=== PATIENT | male | born 1990 | race Hispanic/Latino ===

== ENCOUNTER 2020-06-01 09:28 | Inpatient (IN) | payer OTHER ==
[~2020-06-01] VITALS: Ht 180.3 cm; Wt 104.3 kg
--- NOTE | 2020-06-01 10:36 | Diagnostic Imaging Report ---
EXAM: CT Abdomen and Pelvis without contrast INDICATION: Right lower quadrant abdominal pain. COMPARISON: None. TECHNIQUE: Abdomen and pelvis were scanned utilizing a multidetector helical scanner from the lung base to the pubic symphysis without administration of IV contrast. Coronal and sagittal reformations were obtained. Routine protocol was performed. IV CONTRAST: None. ORAL CONTRAST: None. COMPLICATIONS: None RADIATION DOSE: Total DLP: 731.6 mGy*cm Estimated effective dose: (DLP x 0.015 x size factor) mSv CTDIvol has been reviewed. It is below the limits set by the Radiation Protocol Committee (RPC). FINDINGS: LINES and TUBES: None. LOWER THORAX: Unremarkable HEPATOBILIARY: No evidence of focal lesion. No biliary ductal dilation. GALLBLADDER: No radio-opaque stones or sludge. No wall thickening. SPLEEN: No splenomegaly. PANCREAS: No focal masses or ductal dilatation. ADRENALS: No adrenal nodules KIDNEYS/URETERS: No evidence of hydronephrosis, solid mass, or stone. GI TRACT: No evidence of wall thickening or distension. There is mild dilation of the appendix, measuring up to 7 mm with mild mural enhancement. There is no significant fat stranding directly adjacent to the appendix. There is stranding within the fat in the right lower quadrant, but not directly centered adjacent to the appendix. PELVIC ORGANS/BLADDER: Unremarkable. LYMPH NODES: No lymphadenopathy. VESSELS: Unremarkable. PERITONEUM / RETROPERITONEUM: No free air or fluid. BONES AND SOFT TISSUES: No acute osseous abnormality. Moderate right fat-containing inguinal hernia. CONCLUSION: The appendix is mildly dilated with mural enhancement, but demonstrates no wall thickening or direct surrounding inflammatory changes. There is however fat stranding in the right lower quadrant fat adjacent to the right inguinal hernia, which may be mildly inflamed. Recommend clinical correlation for reducibility. An additional consideration is early appendicitis in the appropriate clinical setting. Recommend clinical and/or short interval contrast enhanced CT follow-up. The above findings were discussed with Dr. Santy Salamanca on 06/01/2020 at 1030AM. Signed by: Dr. Lowell Melara MD on 06/01/2020 10:32 AM
--- NOTE | 2020-06-01 10:50 | Emergency Department Note ---
History of Present Illnes History of Present Illness Chief Complaint: Abdominal Complaints History of Present Illness This is a 29 year old male . Historian: Patient Arrival Mode: Car Onset (how long ago): day(s) (1) Location: RLQ PAIN Quality: DULL Severity: moderate Onset quality: gradual Duration (how long): day(s) (1) Timing of current episode: intermittent Progression: waxing and waning Context: Denies recent illness, Denies recent surgery, Denies recent immobilization, Denies recent travel, Denies trauma/injury, Denies new medications, Denies hx of DVT/PE, Denies non-compliance w/ medications, Denies other Relieving factors: none Exacerbating factors: none Associated symptoms: Reports denies other symptoms Treatments prior to arrival: none Past Medical/Family History Physician Review I have reviewed the patient's past medical and family history. Any updates have been documented here. Past Medical History Recent Fever: No Clinical Suspicion of Infectio: No New/Unexplained Change in Ment: No Past Medical History: None Other Surgery: foot surgeries Social History Smoking Cessation: Never Smoker Counseling Performed: No Alcohol Use: None Any Illegal Drug Use: No Physically hurt or threatened: No Other Any Pre-Existing Lines (PICC,: No Review of Systems Review of Systems Constitutional: Reports no symptoms EENTM: Reports no symptoms Cardiovascular: Reports no symptoms Respiratory: Reports no symptoms Gastrointestinal: Reports as per HPI Genitourinary: Reports no symptoms Musculoskeletal: Reports no symptoms Integumentary: Reports no symptoms Neurological: Reports no symptoms Psychological: Reports no symptoms Endocrine: Reports no symptoms Hematological/Lymphatic: Reports no symptoms Physical Exam Related Data Allergies: Coded Allergies: latex (Verified Allergy, Intermediate, rash/hives, 06/01/20) Triage Vital Signs Vital Signs Date Time Temp Pulse Resp B/P (MAP) Pulse Ox O2 Delivery O2 Flow Rate FiO2 06/01/20 09:40 98.4 64 18 112/69 100 Room Air Vital signs reviewed: Yes Physical Exam CONSTITUTIONAL Constitutional: Present well-developed, Present well-nourished HENT HENT: Present normocephalic, Present atraumatic, Present oropharynx clear/moist, Present nose normal HENT L/R: Present left ext ear normal, Present right ext ear normal EYES Eyes: Reports PERRL, Reports conjunctivae normal NECK Neck: Present ROM normal PULMONARY Pulmonary: Present effort normal, Present breath sounds normal CARDIOVASCULAR Cardiovascular: Present regular rhythm, Present heart sounds normal, Present capillary refill normal, Present normal rate GASTROINTESTINAL Abdominal: Present soft, Present bowel sounds normal, Present other (RLQ) GENITOURINARY Genitourinary: Present exam deferred SKIN Skin: Present warm, Present dry MUSCULOSKELETAL Musculoskeletal: Present ROM normal NEUROLOGICAL Neurological: Present alert, Present oriented x 3, Present no gross motor or sensory deficits PSYCHOLOGICAL Psychological: Present mood/affect normal, Present judgement normal Results Laboratory Lab results reviewed: Yes Imaging Imaging results reviewed: Yes Assessment & Plan Medical Decision Making MDM APPENDICITIS KIDNEY STONE Reassessment Reassessment time: 10:46 Reassessment SAME Assessment & Plan Final Impression: (1) Abdominal pain, right lower quadrant Depart Disposition: ADMITTED Last Vital Signs Date Time Temp Pulse Resp B/P (MAP) Pulse Ox O2 Delivery O2 Flow Rate FiO2 06/01/20 09:40 98.4 64 18 112/69 100 Room Air ANDREA SINGER MD Jun 01, 2020 10:50
[2020-06-01] MEDS ORDERED: PIPER-TAZ 3.375 GM 50 ML IV ONE (11:00)
[2020-06-01] MEDS: SODIUM CHLORIDE 0.9% 1000ML 1,000 ML IV SCH (11:00)
[2020-06-01] MEDS ORDERED: ONDANSETRON HCL INJ 2MG/ML 2ML 2 MG/ML VIAL IV PRN (11:00)
[2020-06-01] MEDS ORDERED: PIPER-TAZ 3.375 GM 50 ML ONE (11:02)
--- OUTSIDE RECORDS SUMMARY | 2020-06-01 11:04 | XMS REPORT | Continuity of Care Document ---
Author Author [facility] t Organization [facility] Address [address] [place] [address] Dr. Bauman [address] [place] [phone] Phone Unavailable Care Team Providers Care Business Test Analyst Name Role Phone SANTY SALAMANCA Attphys Unavailable Problems This patient has no known problems. Allergies, Adverse Reactions, Alerts This patient has no known allergies or adverse reactions. Medications This patient has no known medications. Procedures This patient has no known procedures. Results Test Description Test Time Test Comments Results Result Comments Source CT ABD/PEL WO CONTRAST-HOPD 2020-06-01 10:14:00 [place] [address] Patient Name: WILLI HUNTLEY MR #: [id number] : 1990 Age/Sex: 29/M Req #: [id number] Adm Physician: Ordered by: SANTY SALAMANCA MD Report #: [id number] [facility] Room/Bed: Procedure: [id number] HOPD/CT ABD/PEL WO CONTRAST-HOPD Exam Date: 06/01/20 Exam Time: 1009 REPORT STATUS: Signed EXAM: CT Abdomen and Pelvis without contrast INDICATION: Right lower quadrant abdominal pain. COMPARISON: None. TECHNIQUE: Abdomen and pelvis were scanned utilizing a multidetector helical scanner from the lung base to the pubic symphysis without administration of IV contrast. Coronal and sagittal reformations were obtained. Routine protocol was performed. IV CONTRAST: None. ORAL CONTRAST: None. COMPLICATIONS: None RADIATION DOSE: Total DLP: 731.6 mGy*cm Estimated effective dose: (DLP x 0.015 x size factor) mSv CTDIvol has been reviewed. It is below the limits set by the Radiation Protocol Committee (RPC). FINDINGS: LINES and TUBES: None. LOWER THORAX: Unremarkable HEPATOBILIARY: No evidence of focal lesion. No biliary ductal dilation. GALLBLADDER: No radio-opaque stones or sludge. No wall thickening. SPLEEN: No splenomegaly. PANCREAS: No focal masses or ductal dilatation. ADRENALS: No adrenal nodules KIDNEYS/URETERS: No evidence of hydronephrosis, solid mass, or stone. GI TRACT: No evidence of wall thickening or distension. There is mild dilation of the appendix, measuring up to 7 mm with mild mural enhancement. There is no significant fat stranding directly adjacent to the appendix. There is stranding within the fat in the right lower quadrant, but not directly centered adjacent to the appendix. PELVIC ORGANS/BLADDER: Unremarkable. LYMPH NODES: No lymphadenopathy. VESSELS: Unremarkable. PERITONEUM / RETROPERITONEUM: No free air or fluid. BONES AND SOFT TISSUES: No acute osseous abnormality. Moderate right fat-containing inguinal hernia. CONCLUSION: The appendix is mildly dilated with mural enhancement, but demonstrates no wall thickening or direct surrounding inflammatory changes. There is however fat stranding in the right lower quadrant fat adjacent to the right inguinal hernia, which may be mildly inflamed. Recommend clinical correlation for reducibility. An additional consideration is early appendicitis in the appropriate clinical setting. Recommend clinical and/or short interval contrast enhanced CT follow-up. The above findings were discussed with Dr. Santy Salamanca on 06/01/2020 at 1030AM. Signed by: Dr. Ozzie Haddad MD on 06/01/2020 10:32 AM Dictated By: OZZIE HADDAD MD 1032 Transcribed By: MANUEL on 06/01/20 1032 COPY TO: SANTY SALAMANCA MD
--- NOTE | 2020-06-01 11:22 | NUR ---
Called [facility] to transport pt to room 214.
--- NOTE | 2020-06-01 11:30 | NUR ---
Report called to KONG Garcia
--- NOTE | 2020-06-01 12:38 | NUR ---
PT ARRIVED FROM [facility] VIA EMS. PT IS AAOX4. EDUCATED PT ABOUT FALL PRECAUTIONS. PT VERBALIZED UNDERSTANDING. BED IS LOW AND LOCKED. SIDE RAILS X2. CALL LIGHT WITH IN EASY REACH. ALL SAFETY MEASURES IN PLACE. PT DENIES NEEDS AT THIS TIME.
[2020-06-01 13:00] VITALS: BP 119/59
--- NOTE | 2020-06-01 13:30 | NUR ---
DR. SULLIVAN AT BEDSIDE.
--- NOTE | 2020-06-01 14:00 | NUR ---
PAGED DR. QUIROGA REGARDING NEW CONSULT.
[2020-06-01 14:05] VITALS: BP 119/59
[2020-06-01 14:49] VITALS: BP 119/59
[2020-06-01] MEDS: PIPER-TAZ 3.375 GM 50 ML IV SCH ×2 (16:55→23:20)
[2020-06-01 16:56] VITALS: BP 116/68
--- NOTE | 2020-06-01 19:00 | NUR ---
RECEIVED PATIENT IN BEDSIDE SHIFT REPORT. PATIENT AMBULATING AROUND ROOM AT THIS TIME, STEADY GAIT NOTED. NO PAIN REPORTED. NO S&S OF DISTRESS NOTED. BED LOCKED IN LOWEST POSITION, SIDE RAILS UPX2, CALL LIGHT IN REACH.
--- NOTE | 2020-06-01 19:05 | NUR ---
BEDSIDE SHIFT REPORT RECEIVED FROM THE SHIPPING INSPECTOR RN. PT DENIED FURTHER NEEDS.
--- NOTE | 2020-06-01 19:35 | Consultation ---
DATE OF CONSULTATION: 06/01/2020 HISTORY OF PRESENT ILLNESS: The patient is a 29-year-old male, who presents with complaints of right lower quadrant abdominal pain. The patient has a known right inguinal hernia for some time. He says the pain is more in the area where his hernia is. He says the hernia swelled up more today size of a baseball. He went to the emergency room where he had CT of the abdomen and pelvis, found to have what appeared to be a mildly inflamed appendix with some inflammatory changes in the area of the hernia. He has not had any nausea or vomiting. He has not had any fever. He says the abdominal pain has gone right now. PAST MEDICAL HISTORY: Unremarkable. He has no chronic medical problems. He has had previous foot surgery. ALLERGIES: HE HAS ALLERGY TO LATEX. MEDICATIONS: There are no home medications. FAMILY HISTORY: Noncontributory. SOCIAL HISTORY: The patient does not smoke cigarettes or drink alcohol. REVIEW OF SYSTEMS: As stated above, otherwise was negative. PHYSICAL EXAMINATION: GENERAL: The patient is awake and alert, in no distress. VITAL SIGNS: Normal. He is afebrile. HEENT: Sclerae not icteric. NECK: No masses. LUNGS: Equal breath sounds are clear bilaterally. CARDIAC: Regular rate and rhythm with no murmur. ABDOMEN: Soft. There was no tenderness. No mass on abdominal exam. On examination of the inguinal area, there is a reducible right inguinal hernia which is very tender. EXTREMITIES: Have no edema. Pulses are palpable. NEUROLOGIC: Intact. LABORATORY DATA: White blood cell count is reported as normal. IMAGING: CT of the abdomen revealed mildly inflamed appearing appendix with inflammation more around the area of the right inguinal hernia, which was also seen on CT. ASSESSMENT: A 29-year-old male with findings of abdominal pain, most likely due to his hernia which may have been incarcerated but now is reduced, but there are also abnormalities of the appendix on CT and he was very tender in his hernia when I examined him. He possibly could have appendicitis within the hernia sac, although this was not seen on CT. Plan is to get evaluated further with laparoscopy, possible appendectomy with probable repair of the hernia, possibly with mesh. This surgery was explained to the patient including risks, benefits, and alternatives. He understands. He has had the opportunity to ask questions. Thank you for asking me to see Mr. Valdez. Les W MD DEBORAH Villavicencio/LUCITA /[id number]
[2020-06-01 20:00] VITALS: BP 116/52
[2020-06-01 20:15] VITALS: BP 116/52
--- NOTE | 2020-06-01 21:30 | NUR ---
PATIENT SHOWERED WITH CHG SOAP AT THIS TIME.
--- NOTE | 2020-06-01 22:55 | History and Physical ---
CHIEF COMPLAINT: Right lower quadrant abdominal pain. HISTORY OF PRESENT ILLNESS: This is a 29-year-old healthy charleen who was fine this morning, went to work, had severe right lower quadrant abdominal pain. Denies any nausea, vomiting. Denies any diarrhea. Denies any fever. Of note, the patient also has chronic right testicular enlargement, sometimes painful; however, when he wakes up in the morning, it is usually much better. The patient denies any chest pain. No shortness of breath. PAST MEDICAL AND SURGICAL HISTORY: Only orthopedic surgeries. MEDICATIONS: None. ALLERGIES: LATEX. SOCIAL HISTORY: No smoking. FAMILY HISTORY: Cancer. REVIEW OF SYSTEMS: A 10-point review of systems was obtained and nothing else is significant other than what is stated in HPI. PHYSICAL EXAMINATION: VITAL SIGNS: Temperature 98.6, pulse 60, respiratory rate 20, blood pressure 116/52. GENERAL: No acute distress. SKIN: No rash. HEENT: Anicteric. Oropharynx is clear. LUNGS: Clear. HEART: Regular rate and rhythm. Normal S1, S2. ABDOMEN: Soft, nondistended. Right lower quadrant tenderness. NEUROLOGIC: Alert and oriented x3. Cranial nerves 2 through 12 are grossly intact. PSYCHIATRIC: No hallucination. MUSCULOSKELETAL: Painless range of motion. LABORATORY DATA: CT shows right inguinal hernia with possible early appendicitis. ASSESSMENT AND PLAN: 1. Right lower quadrant abdominal pain. I have discussed with Dr. Villavicencio, Surgery, likely due to inguinal hernia, which may have been incarcerated, but now is reduced. The patient will be operated tomorrow. The plan is hernia repair, possibly appendectomy after evaluation with laparoscopy. At this time, we will continue Zosyn. 2. Gastrointestinal and deep vein thrombosis prophylaxis. No chemical DVT prophylaxis due to planned surgery. MD DAKSHA Cline/LUCITA /[id number]
[2020-06-02] VITALS (7 sets, daily range): BP systolic 104–122; BP diastolic 52–70
[2020-06-02] MEDS: SODIUM CHLORIDE 0.9% 1000ML 1,000 ML IV SCH (01:26)
[2020-06-02] MEDS: PIPER-TAZ 3.375 GM 50 ML IV SCH (05:19)
[2020-06-02] MEDS ORDERED: BACITRACIN 50,000 UNIT VIAL ONE (09:15)
[2020-06-02] MEDS ORDERED: BUPIVACAINE HCL 0.5% INJ 30 ML VIAL INJ ONE (09:15)
[2020-06-02] MEDS ORDERED: MIDAZOLAM HCL 2 MG/2 ML VIAL ONE (09:32)
[2020-06-02] MEDS ORDERED: SODIUM CHLORIDE 0.9% 1000ML 1,000 ML IV SCH (10:45)
[2020-06-02] MEDS ORDERED: MORPHINE SULFATE INJ 4 MG/ML INJ 1ML IV PRN (10:45)
[2020-06-02] MEDS: ONDANSETRON HCL INJ 2MG/ML 2ML 2 MG/ML VIAL IV PRN ×2 (11:00→16:35)
[2020-06-02] MEDS ORDERED: PROMETHAZINE HCL (IM) 25 MG/ML VIAL IM ONE (11:05)
--- NOTE | 2020-06-02 11:33 | Operative Report ---
DATE OF PROCEDURE: 06/02/2020 SURGEON: Les Villavicencio MD PREOPERATIVE DIAGNOSES: 1. Abdominal pain. 2. Right inguinal hernia. 3. Possible appendicitis. POSTOPERATIVE DIAGNOSES: 1. Abdominal pain. 2. Right inguinal hernia. 3. Possible appendicitis with appendicitis ruled out. PROCEDURES: Diagnostic laparoscopy, open repair of right inguinal hernia with mesh. ULTIMATE HOOPS SCOREBOARD OPERATOR: None. ANESTHESIA: General endotracheal. INDICATIONS AND FINDINGS: The patient is a 29-year-old male presenting with complaints of right lower quadrant abdominal pain. Evaluation revealed right inguinal hernia with possibly inflamed appendix. At Surgery, the patient was found to have a laparoscopy with normal-appearing appendix. There was some edema and fluid around the area of the right inguinal hernia, where his omentum go into the right inguinal hernia, which was not incarcerated. There was an indirect right inguinal hernia that was found. TECHNIQUE: After adequate general endotracheal anesthesia, the patient's supine position, the abdomen was and groin area prepped and draped in a sterile fashion with Betadine solution. Skin in the umbilicus was infiltrated with 0.5% Marcaine, incision was made in the umbilicus, abdominal wall was elevated and Veress needle was introduced, pneumoperitoneum was then created. A 5 mm trocar and cannula was then passed through this wound. Laparoscopic camera was introduced. Initial laparoscopy revealed large right inguinal hernia with omentum going into up and the omentum was not incarcerated, but did appear somewhat edematous with some serous fluid in the area. A 5 mm trocar and cannulas were placed in the right upper quadrant. The omentum was retracted away from the lower abdomen and reduced out of the hernia. The cecum was identified that was not inflamed. The appendix was seen. There was no inflammatory changes, was not dilated. The instruments and cannulas were then removed. Pneumoperitoneum was evacuated. Incision was then made in the right inguinal area, carried out through subcutaneous tissue and Selma's fascia into the external oblique fascia was seen. This was opened in direction of its fibers through the external ring. The ilioinguinal nerve was identified and preserved. The spermatic cord was dissected free from the floor of the inguinal canal. The cremaster fibers were opened. There was an indirect hernia sac which was contained some fluid. This was dissected free from the spermatic cord. There was no evidence of a direct hernia. The hernia sac extended down into the scrotum and there was considerable scarring around the hernia sac. The hernia sac and its neck were freed from the spermatic cord up to the internal ring. It was then divided at its midportion, the distal sac left in place. The more proximal sac was then doubly suture ligated with 2-0 Vicryl and reduced through the internal ring. A large Prolene mesh hernia system which had been soaked in antibiotic solution was placed through the internal ring with the underlay patch opened up in the preperitoneal space, onlay patch was laid over the floor of the inguinal canal, the keyhole opening created to allow exit spermatic cord. The onlay patch was sutured to the shelving edge of inguinal ligament laterally and conjoint tendon medially. This was done interrupted sutures of 0 Prolene. Care was taken not to entrap the general femoral or iliohypogastric nerves. Once the mesh was in place, the spermatic cord and ilioinguinal nerve were returned to their normal positions. The wound was inspected for hemostasis, which was seen to be adequate. The wound was then infiltrated with 0.5% Marcaine. The external oblique fascia was closed with running suture of 2-0 Vicryl. Care was taken not to entrap the spermatic cord or ilioinguinal nerve. Selma's fascia was closed with a running suture of 3-0 Vicryl. Skin to all wounds closed with running subcuticular sutures of 4-0 Vicryl. Dermabond and sterile dressing were applied to each wound. The patient tolerated the procedure well. Estimated blood loss was 5 mL. There were no complications. All counts were correct and the patient was taken to the recovery room in satisfactory condition. MD DEBORAH Chawla/MODL /[id number] cc: Raudel Jackson MD
--- NOTE | 2020-06-02 19:00 | NUR ---
RECEIVED PATIENT IN BEDSIDE SHIFT REPORT. PATIENT RESTING IN BED AT THIS TIME. MILD PAIN REPORTED. TROCHAR SITES TO ABD C/D/I. L AC 20G ASYMPTOMATIC, RUNNING NS @ 100ML/HR. PATIENT REPORTS NO NAUSEA OR VOMITING. NO S&S OF DISTRESS NOTED. BED LOCKED IN LOWEST POSITION, SIDE RAILS UPX2, CALL LIGHT IN REACH.
[2020-06-02] MEDS: HYDROCODONE/APAP 5MG-325MG TAB PO PRN (20:14)
--- NOTE | 2020-06-02 20:45 | Progress Note ---
DATE: 06/02/2020 SUBJECTIVE: The patient is doing well. Some right groin pain with movement. OBJECTIVE: VITAL SIGNS: Temperature 98.4, pulse 64, respiratory rate 18, blood pressure 120/54. GENERAL: No acute distress. SKIN: No rash. LUNGS: Clear. HEART: Regular rate and rhythm. Normal S1, S2. GI: Abdomen is soft, nondistended. NEUROLOGIC: Alert and oriented x3. PSYCHIATRIC: No hallucination. LABORATORY DATA: No new labs. ASSESSMENT/PLAN: 1. Right inguinal hernia status post repair. Otherwise, no evidence of all appendicitis. Plan per Dr. Villavicencio. We will discontinue antibiotics. We will continue IV fluid. 2. Gastrointestinal and deep venous thrombosis prophylaxes not indicated. MD DAKSHA Cline/LUCITA /[id number]
[2020-06-02] MEDS ORDERED: DEXAMETHASONE SOD PHOS INJ 4 MG/ML VIAL ONE (21:45)
[2020-06-02] MEDS ORDERED: KETOROLAC TROMETHAMINE 30 MG/ML VIAL ONE (21:45)
[2020-06-02] MEDS ORDERED: LIDOCAINE HCL 2% LOCAL INJ 5 ML SDV VIAL INJ ONE (21:45)
[2020-06-02] MEDS ORDERED: ONDANSETRON HCL INJ 2MG/ML 2ML 2 MG/ML VIAL ONE (21:45)
[2020-06-02] MEDS ORDERED: ROCURONIUM BROMIDE 10 MG/ML 5ML VIAL IV ONE (21:45)
[2020-06-02] MEDS ORDERED: PROPOFOL IV EMULSION 10 MG/ML 20 ML VIAL ONE (21:45)
[2020-06-02] MEDS ORDERED: SEVOFLURANE INHAL SOLN 250 ML PEN BTL ONE (21:45)
[2020-06-02] MEDS ORDERED: LIDOCAINE HCL 2% JELLY 5 ML TUBE ONE (21:45)
[2020-06-03] VITALS: BP 115/70
[2020-06-03 04:00] VITALS: BP 112/57
[2020-06-03 07:55] VITALS: BP 103/51
[2020-06-03 09:55] VITALS: BP 103/51
--- NOTE | 2020-06-03 10:18 | NUR ---
Yuly to discharge patient per Dr. Jackson. Raymundo
[2020-06-03] MEDS: HYDROCODONE/APAP 5MG-325MG TAB PO PRN (10:55)
--- NOTE | 2020-06-03 12:00 | NUR ---
Discharge education provided emphasizing the need to follow-up Dr. Villavicencio in 1 week. Prescription given. Patient is advised to watch s/s of infection in post-surgical area. Verbalized understanding. Discharge packet given. PIV to left AC removed with catheter tip intact, no bleeding noted.
--- NOTE | 2020-06-03 12:32 | NUR ---
Transported patient via wheelchair to private vehicle with all belongings taken.
--- NOTE | 2020-06-03 23:01 | Discharge Summary ---
FINAL DIAGNOSIS: Right inguinal hernia. CONSULTANTS: Dr. Villavicencio, Surgery. PROCEDURES/STUDIES PERFORMED: CT of the abdomen and pelvis and right inguinal hernia repair. HISTORY: Per dictated H and P. HOSPITAL COURSE: The patient was evaluated by the surgeon and was taken to the OR, where his right inguinal hernia was repaired. Laparoscopy was done. There was no appendicitis. CONDITION ON DISCHARGE: Improved. DISCHARGE MEDICATIONS: Please see medication reconciliation form. The patient will follow up with Dr. Villavicencio in one week. MD DAKSHA Cline/LUCITA /[id number]
== END 2020-06-03 12:22 | disposition home or self-care (01) | DRG 352 ==
LOC: FSED 10:10 → ERHOLD 10:57 → MED/SURG2 12:44
PROVIDERS: ADMIT Internal Medicine; ATTEND Internal Medicine
PROC: 0YU50JZ Supplement Right Inguinal Region with Synthetic Substitute, Open Approach (ICD-10-PCS; principal; 2020-06-02 09:30)
DX: K40.90 Unilateral inguinal hernia, without obstruction or gangrene, not specified as recurrent (principal); Z91.040 Latex allergy status; Z11.59 Encounter for screening for other viral diseases
CPT/HCPCS: 74176; 80048; 80076; 81003; 85025; 99284; C1781; J1100; J1885; J2001; J2250; J2270; J2405; J2543; J2550; J7030; U0002